=== PATIENT | male | born 1950 | race Caucasian/White ===

== ENCOUNTER 2016-06-02 10:57 | Day surgery (SDC) | payer BC ==
[2016-05-29 14:02] VITALS: BMI 31.4
[~2016-06-02 10:57] MED LIST: ALPRAZolam 0.25 MG TAB PO PRN; ALPRAZolam 0.5 MG TAB PO PRN; ASPIRIN 325 MG TAB PO STA; ATORVASTATIN 80 MG TAB PO STA; NITROGLYCERIN SL TABS 0.4 MG TAB SUBLINGUAL PRN; SODIUM CHLORIDE 0.9% 1,000 ML in EMPTY BAG 1 BAG IV ONE
[2016-06-02 11:14] VITALS: PULSE 65; RESP 20; TEMP 98.5
[2016-06-02 11:23] LABS: Glucose,Whole Blood 139 mg/dL (75-99)
[2016-06-02] MEDS ORDERED: MIDAZOLAM 2 MG/2 ML VIAL ONE (12:09)
[2016-06-02] MEDS ORDERED: HEPARIN SODIUM 1,000 UNIT/ML VIAL ONE (12:09)
[2016-06-02] MEDS ORDERED: VERAPAMIL 2.5 MG/ML 2 ML AMP ONE (12:09)
[2016-06-02] MEDS ORDERED: LIDOCAINE 2% INJ 20 MG/ML (20 ML MDV) ONE (12:09)
[2016-06-02] MEDS ORDERED: IV FLUID CONTINUATION 1,000 ML IV ONE (12:22)
[2016-06-02] MEDS ORDERED: MIDAZOLAM 2 MG/2 ML VIAL IVP ONE (12:35)
[2016-06-02] MEDS ORDERED: LIDOCAINE 2% INJ 20 MG/ML SQ ONE (12:38)
[2016-06-02] MEDS: VERAPAMIL SYRINGE (5 MG/10 ML) INTRAARTER ONE ×2 (12:39→12:49)
[2016-06-02] MEDS ORDERED: HEPARIN SODIUM 1,000 UNIT/ML VIAL IV ONE (12:41)
[2016-06-02] MEDS ORDERED: IOHEXOL 350 MG/ML 100 ML BOTTLE INJ ONE (12:49)
[2016-06-02] MEDS ORDERED: RX INFO: IV CONTRAST WAS GIVEN 1 EACH MISC MISCELLANE PRN (12:55)
[2016-06-02] MEDS ORDERED: SODIUM CHLORIDE 0.9% 1,000 ML IV SCH (13:00)
--- NOTE | 2016-06-02 13:03 | P.PCN ---
Date of Procedure: 06/02/16 Operative Findings: CARDIAC CATHETERIZATION PERFORMING PHYSICIAN: Charles Gunter MD, RPVI PREPROCEDURE DIAGNOSES: - Intermittent episodes of chest discomfort consistent with angina - Abnormal stress test - Multiple risk factors for CAD POSTPROCEDURE DIAGNOSES: - Normal coronary angiogram - Normal left ventricular end-diastolic pressure - Normal left ventricular systolic function - Falsely abnormal stress test PROCEDURE PERFORMED: 1. Selective right and left coronary angiogram 2. Left heart catheterization 3. Left ventriculography APPROACH: Right radial artery PROCEDURE DESCRIPTION: After obtaining an informed consent and explaining the procedure benefits, risks , and complications, the patient was brought to cardiac operations label clerk. Local anesthesia was performed using lidocaine subcutaneously. The right radial artery was cannulated using Seldinger technique, the guidewire passed easily, following that we advanced a 6-Syriac sheath dilator assembly, the wire and dilator were removed and sheath was flushed. Following that, 2 mg of verapamil along with 3000 unit heparin were given. Selective right and left coronary angiogram using a 6-Syriac JR4 and JL 3.5 catheters. Following that we did left heart catheterization followed by left ventriculography using 6-Syriac pigtail catheter. The procedure was completed there was no complication. SELECTIVE CORONARY ANGIOGRAM: The right coronary artery: Is a small caliber vessel and non-dominant vessel. Its angiographically normal. Left main: Short left main and angiographically normal. The left circumflex: Large caliber vessel and is a dominant vessel. Its angiographically normal. The midportion gives rises into the first OM which seems to be normal and distally bifurcates into PDA and PLV branches both are angiographically normal. The left anterior descending artery: Is angiographically normal. Gives rises into 2 small diagonal branches and they are angiographically normal. HEMODYNAMICS: The left ventricular end-diastolic pressure was 8 mmHg and no gradient was identified across aortic valve VENTRICULOGRAPHY: Was performed in the BRAUN projection and using a power injection. The left ventricular systolic function is normal with an ejection fraction of 60% and normal wall motion. POSTPROCEDURE MANAGEMENT: Medical treatment Follow-up with the patient
[2016-06-02 17:34] VITALS: BP 148/73
== END 2016-06-02 17:05 | disposition home or self-care (01) ==
LOC: CATHCVL 10:57
PROVIDERS: ATTEND Internal Medicine Interventional Cardiology
DX: R07.89 Other chest pain (principal); I10 Essential (primary) hypertension; E78.5 Hyperlipidemia, unspecified; Z79.82 Long term (current) use of aspirin; Z79.899 Other long term (current) drug therapy; Z87.891 Personal history of nicotine dependence
CPT/HCPCS: 93458; C1894; J2001; J2250; Q9967; J1644